=== PATIENT | female | born 2000 | race Caucasian/White ===

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

== ENCOUNTER 2021-01-02 11:17 | Emergency (ER) | payer OTHER ==
[~2021-01-02] VITALS: Ht 172.7 cm; Wt 65.7 kg
[2021-01-02 11:18] VITALS: BP 115/65
[2021-01-02 14:43] LABS: BASO # 0.1 10^3/uL (0.0-0.2); BASO % 0.3 % (0.0-1.0); HEMATOCRIT 40.8 % (36.0-47.0); HEMOGLOBIN 13.1 g/dl (12.0-15.5); LYMPH # 1.6 10^3/uL (1.5-5.0); LYMPH % 6.4 % (24.0-44.0); MEAN CORPUSCULAR HEMOGLOBIN 29.1 pg (27.0-33.0); MEAN CORPUSCULAR HGB CONC 32.1 g/dl (32.0-36.5); MEAN CORPUSCULAR VOLUME 90.7 fl (80.0-96.0); MONO # 1.7 10^3/uL (0.0-0.8); MONO % 6.8 % (2.0-8.0); NEUTROPHILS # 21.7 10^3/uL (1.5-8.5); NEUTROPHILS % 85.8 % (36.0-66.0); PLATELET COUNT, AUTOMATED 400 10^3/uL (150-450); WHITE BLOOD COUNT 25.3 10^3/uL (4.0-10.0)
--- NOTE | 2021-01-02 15:09 | REP ---
INDICATION: CHEST PAIN; pleuritic cp. COMPARISON: 07/26/2006. TECHNIQUE: Two views of the chest are performed. FINDINGS: There is patchy infiltrate in the lingula. The right lung appears clear. The heart is normal in size. The mediastinal silhouette appears unremarkable. The visualized osseous structures appear intact. IMPRESSION: Lingular infiltrate. <Electronically signed by Ji Arreaga > 01/02/21 [id number]
[2021-01-02 15:11] LABS: ALBUMIN 3.3 GM/DL (3.2-5.2); ALT/SGPT 17 U/L (12-78); BILIRUBIN,DIRECT 0.1 MG/DL (0.0-0.2); BILIRUBIN,TOTAL 0.5 MG/DL (0.2-1.0); BLOOD UREA NITROGEN 11 MG/DL (7-18); CALCIUM LEVEL 9.2 MG/DL (8.5-10.1); CARBON DIOXIDE LEVEL 22 MEQ/L (21-32); CHLORIDE LEVEL 103 MEQ/L (98-107); CK-MB VALUE MASS < 1.0 NG/ML (<3.6); CPK CREATINE PHOSPHOKINASE 42 U/L (26-192); CREATININE FOR GFR 0.64 MG/DL (0.55-1.30); GLUCOSE, FASTING 73 MG/DL (70-100); LIPASE 52 U/L (73-393); MB/CK RELATIVE INDEX 2.38 (< OR =4); POTASSIUM SERUM 3.6 MEQ/L (3.5-5.1); SODIUM LEVEL 139 MEQ/L (136-145); TOTAL PROTEIN 7.1 GM/DL (6.4-8.2); TROPONIN I < 0.02 NG/ML (< 0.10)
--- NOTE | 2021-01-03 05:29 | ECGEPIP ---
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
--- NOTE | 2021-01-03 14:05 | ED PDOC ---
Post-Departure Follow-Up hortencia olsen to call pt and request pt come to ED for evaluation. Blood and CXR a bnormalities in pt who was LWBS. April Villafana MD Jan 03, 2021 14:05
== END 2021-01-02 15:43 | disposition left against medical advice (07) ==
LOC: M ED 11:17
DX: Z53.21 Procedure and treatment not carried out due to patient leaving prior to being seen by health care provider (principal)

== ENCOUNTER → 2023-05-06 | Outpatient (REF) | LOC: M LAB REF 08:40 | PROVIDERS: ATTEND Obstetrics & Gynecology Obstetrics | DX: Z00.00 Encounter for general adult medical examination without abnormal findings (principal) ==

== ENCOUNTER 2023-09-13 05:37 | Inpatient (IN) | payer OTHER, SELFPAY ==
[~2023-09-13] VITALS: Ht 157.5 cm; Wt 90.9 kg
[2023-09-13] VITALS (13 sets, daily range): BP systolic 109–142; BP diastolic 57–78; TEMP 98.1; O2SAT 96–99
[2023-09-13] MEDS ORDERED: ONDA8TAB8 PO (05:45)
[2023-09-13] MEDS ORDERED: PRENTAB9 PO (05:53)
[2023-09-13] MEDS ORDERED: HOME MED LIST COMPLETE! XX SCH (05:55)
[2023-09-13] MEDS ORDERED: OXYTOCIN DRIP 30 UNITS in IV 1 EA IV PRN (06:45)
[2023-09-13] MEDS ORDERED: LIDOCAINE 1% MDV 20ML VIAL INFIL PRN (06:45)
[2023-09-13] MEDS: ONDANSETRON 4MG 2ML VIAL IV PRN (07:32)
[2023-09-13] MEDS: ceFAZolin SOD 2 GM in IV 1 EA IV STA (07:39)
[2023-09-13 07:47] LABS: HEMOGLOBIN 11.2 g/dl (12.0-15.5); MEAN CORPUSCULAR HEMOGLOBIN 27.5 pg (27.0-33.0); PLATELET COUNT, AUTOMATED 424 10^3/uL (150-450); RED BLOOD COUNT 4.07 10^6/uL (4.00-5.40); WHITE BLOOD COUNT 15.2 10^3/uL (4.0-10.0)
[2023-09-13] MEDS ORDERED: FENTANYL 2MCG/ML ROPIVACAINE 0.2% IN 0.9% NACL 100ML IVBAG As Ordered ONE (08:58)
[2023-09-13] MEDS ORDERED: ceFAZolin 1GM VIAL As Ordered ONE (09:23)
[2023-09-13] MEDS ORDERED: ePHEDrine SULFATE 25 MG/5 ML(5MG/ML) SYRINGE IVP PRN (09:25)
[2023-09-13] MEDS: BICITRA 30ML SOLN UDC PO ONE (09:25)
[2023-09-13] MEDS ORDERED: LR 500 ML IV PRN (09:25)
[2023-09-13] MEDS ORDERED: ONDANSETRON 4MG 2ML VIAL IV PRN (09:25)
[2023-09-13] MEDS ORDERED: FENTANYL/ROPIVACAINE/NACL BAG 100 ML EPIDURAL SCH (09:25)
[2023-09-13] MEDS ORDERED: diphenhydrAMINE 50MG/ML VIAL IV PRN (09:25)
[2023-09-13] MEDS ORDERED: EPIDURAL/PCA KEYS XX PRN (09:25)
[2023-09-13] MEDS ORDERED: NALOXONE INJ 0.4MG/1ML VIAL IV PRN (09:25)
[2023-09-13] MEDS: FENTANYL/ROPIVACAINE/NACL BAG 100 ML EPIDURAL SCH (09:26)
[2023-09-13] MEDS: ceFAZolin SOD 1 GM in D5W MINI-BAG PLUS 50 ML IV SCH (09:27)
[2023-09-13] MEDS ORDERED: PHENYLephrine 500MCG 5ML (100MCG/ML) SYRINGE As Ordered ONE (09:51)
[2023-09-13] MEDS ORDERED: ONDANSETRON 4MG 2ML VIAL As Ordered ONE (09:51)
[2023-09-13] MEDS ORDERED: CHLOROPROCAINE PRES. FREE 3% 20ML VIAL As Ordered ONE (09:51)
[2023-09-13] MEDS ORDERED: dexmedeTOMIDine (4MCG/ML)200MCG/50ML BTL (PRECEDEX) As Ordered ONE (09:51)
[2023-09-13] MEDS ORDERED: ACETAMINOPHEN 1000MG 100ML IV BAG As Ordered ONE (09:52)
[2023-09-13 10:00] LABS: CORD GAS ABE V -6.5; CORD GAS HCO3 V 19.5 MMOL/L; CORD GAS O2 SAT V 86.9 %; CORD GAS PCO2 V 40.7 mmHg; CORD GAS PH V 7.299 UNITS; CORD GAS PO2 V 47.4 mmHg; CORD GAS SBC V 19.1 MMOL/L; CORD GAS TCO2 V 20.8 MMOL/L
[2023-09-13 10:03] LABS: CORD GAS ABE A -6.5; CORD GAS HCO3 A 21.7 MMOL/L; CORD GAS O2 SAT A 75.2 %; CORD GAS PCO2 A 52.7 mmHg; CORD GAS PH A 7.233 UNITS; CORD GAS PO2 A 37.7 mmHg; CORD GAS SBC A 18.7 MMOL/L; CORD GAS TCO2 A 23.3 MMOL/L
[2023-09-13] MEDS ORDERED: METOCLOPRAMIDE INJ 10MG/2ML VIAL As Ordered ONE (10:08)
[2023-09-13] MEDS ORDERED: KETOROLAC 60MG 2ML VIAL As Ordered ONE (10:09)
[2023-09-13] MEDS ORDERED: MOM 30ML SUSPENSION UDC PO PRN (10:15)
[2023-09-13] MEDS ORDERED: RHOGAM 300MCG (1500IU) INJ IM SCH (10:15)
[2023-09-13] MEDS ORDERED: MORPHINE PRES-FREE INJ 10 MG/10 ML VIAL As Ordered ONE (10:15)
[2023-09-13] MEDS ORDERED: OXYTOCIN 30UNITS IN 0.9% NaCl 500ML IV BAG As Ordered ONE (10:33)
[2023-09-13] MEDS: OXYTOCIN DRIP 30 UNITS in IV 1 EA IV SCH (10:38)
[2023-09-13] MEDS: KETOROLAC 30 MG/ML 1ML VIAL IV SCH (16:01)
[2023-09-13] MEDS: SIMETHICONE 80MG CHEW TAB PO PRN (18:03)
[2023-09-13] MEDS ORDERED: DOCUSATE SODIUM 100MG CAPSULE PO SCH (21:00)
[2023-09-14 02:15] VITALS: BP 122/81; O2SAT 100
[2023-09-14] MEDS: ACETAMINOPHEN 500 MG TAB PO PRN (02:15)
[2023-09-14 05:20] VITALS: BP 114/68; O2SAT 99
[2023-09-14 05:59] LABS: HEMATOCRIT 29.2 % (36.0-47.0); HEMOGLOBIN 9.3 g/dl (12.0-15.5); MEAN CORPUSCULAR HEMOGLOBIN 27.9 pg (27.0-33.0); MEAN CORPUSCULAR HGB CONC 31.8 g/dl (32.0-36.5); MEAN CORPUSCULAR VOLUME 87.7 fl (80.0-96.0); PLATELET COUNT, AUTOMATED 377 10^3/uL (150-450); RED BLOOD COUNT 3.33 10^6/uL (4.00-5.40); WHITE BLOOD COUNT 17.3 10^3/uL (4.0-10.0)
[2023-09-14] MEDS: PRENATAL VITAMINS CHEWABLE TABLET PO SCH (09:45)
[2023-09-14 10:00] VITALS: BP 131/60; O2SAT 100
[2023-09-14] MEDS: IBUPROFEN 800 MG TAB PO SCH (11:48)
[2023-09-14 14:00] VITALS: BP 118/62; O2SAT 97
[2023-09-14 18:00] VITALS: BP 112/63; O2SAT 100
[2023-09-14] MEDS: PERCOCET 5MG/325MG TAB PO PRN (19:49)
[2023-09-14 22:00] VITALS: BP 119/63; O2SAT 100
[2023-09-15 02:00] VITALS: BP 100/56; O2SAT 98
[2023-09-15 06:00] VITALS: BP 129/60; O2SAT 100
[2023-09-15] MEDS: MEASLES,MUMPS,RUBELLA VACCINE INJ (MMR-II) SC.IMMUN ONE (09:22)
[2023-09-15 10:00] VITALS: BP 129/59; O2SAT 100
[2023-09-15 18:00] VITALS: BP 110/59; O2SAT 98
[2023-09-15 22:00] VITALS: BP 127/69; O2SAT 98
[2023-09-16 06:00] VITALS: BP 117/60; O2SAT 100
[2023-09-16] MEDS ORDERED: IBUP80TA PO (14:05)
[2023-09-16] MEDS ORDERED: ACET-683 PO (14:05)
== END 2023-09-16 15:10 | disposition home or self-care (01) | DRG 540 ==
LOC: M LDO 05:37 → M LDI 06:37 → M OBS 11:45
PROVIDERS: ADMIT Specialist; ATTEND Obstetrics & Gynecology
PROC: 10D00Z1 Extraction of Products of Conception, Low, Open Approach (ICD-10-PCS; principal; 2023-09-13 09:29)
DX: O45.93 Premature separation of placenta, unspecified, third trimester (principal); O99.824 Streptococcus B carrier state complicating childbirth; Z3A.38 38 weeks gestation of pregnancy; Z88.0 Allergy status to penicillin; Z91.013 Allergy to seafood; Z91.048 Other nonmedicinal substance allergy status; Z37.0 Single live birth

== ENCOUNTER → 2025-05-10 | Outpatient (REF) | payer OTHER ==
[~2025-05-10] MED LIST changes: +ACET-683 PO; +AMIT10TA11; -AMIT10TA7; -IBUP-1022 PO; +IBUP600T42 PO; +IBUP80TA PO; +ONDA-282 PO; +ONDA-284 PO; -ONDA4TAB6 PO; +PRENTAB9 PO
== END ==
LOC: M LAB REF 16:57
PROVIDERS: ATTEND Nurse Practitioner Family
DX: N89.8 Other specified noninflammatory disorders of vagina (principal); R30.0 Dysuria

== ENCOUNTER → 2025-06-02 | Outpatient (REF) | payer OTHER, MEDICAID | LOC: M LAB REF 12:19 | PROVIDERS: ATTEND Student in an Organized Health Care Education/Training Program | DX: R30.0 Dysuria (principal) ==